=== PATIENT | female | born 1990 | race Two or more races ===

== ENCOUNTER 2017-01-04 19:45 | Emergency (ER) | payer SELFPAY ==
[~2017-01-04] VITALS: Ht 144.8 cm; Wt 71.0 kg
[2017-01-04 20:32] LABS: HEMOGLOBIN 10.5 g/dL (11.7-16.4)
[2017-01-04 20:42] LABS: BLOOD UREA NITROGEN 12 mg/dL (7-18)
[2017-01-04] MEDS ORDERED: NITROFURANTOIN (MACROBID) 100 MG CAPSULE PO ONE (22:30)
[2017-01-04 22:45] VITALS: BP 105/67
== END 2017-01-04 22:46 | disposition home or self-care (01) ==
LOC: ED 21:40
DX: O23.12 Infections of bladder in pregnancy, second trimester (principal); Z3A.15 15 weeks gestation of pregnancy
CPT/HCPCS: 36415; 76805; 80048; 81001; 82040; 84702; 85025; 87077; 87086; 87186

== ENCOUNTER 2017-03-29 21:01 | Outpatient (CLI) | payer MEDICAID ==
[~2017-03-29] VITALS: Ht 152.4 cm; Wt 71.0 kg
[2017-03-29 21:40] LABS: DAU SCREEN DISCLAIMER
== END 2017-03-29 22:55 | disposition home or self-care (01) ==
LOC: LDOP 21:01
PROVIDERS: ATTEND Obstetrics & Gynecology
DX: O26.893 Other specified pregnancy related conditions, third trimester (principal); R10.9 Unspecified abdominal pain; Z3A.30 30 weeks gestation of pregnancy
CPT/HCPCS: 59025; 80307; 81001; 87086; 99211; G0463